=== PATIENT | male | born 1970 | race Caucasian/White ===

== ENCOUNTER 2021-11-28 09:03 | Emergency (ER) | payer OTHER, SELFPAY ==
[2021-11-28 09:15] VITALS: BP 121/79; PULSE 64; RESP 18; TEMP 36.1; O2SAT 96; BMI 35.9
--- NOTE | 2021-11-28 09:24 | CRLHL7_ITS ---
For Patients: As a result of the Century Cures Act, medical imaging exams and procedure reports are released immediately into your electronic medical record. You may view this report before your referring provider. If you have questions, please contact your health care provider. INDICATION: Chest pain TECHNIQUE: Chest 1 view COMPARISON: None FINDINGS: Cardiovascular and mediastinum: Cardiac silhouette is upper limits of normal. Lungs and pleural spaces: Mild areas of atelectasis noted. No sign of infiltrate or mass. No sign of pleural effusion. No pneumothorax. Bones and soft tissues: No significant findings. IMPRESSION: No cardiac decompensation. Dictated by Fredy Nelson MD @ 11/28/2021 10:33:04 AM (Electronically Signed)
--- NOTE | 2021-11-28 09:49 | ED.GENADULT ---
HPI - General Adult General Time Seen by Provider: 09:49 Date Seen: 11/28/21 Chief complaint: Chest Pain Stated complaint: Shortness of breath, left chest discomfor Time Seen by Provider: 11/28/21 09:23 Source: patient Mode of arrival: ambulatory Limitations: no limitations History of Present Illness HPI narrative: Patient is a 51 year white male had a myocardial infarction in February of last year had a single-vessel stent at [facility]. He has done well since then, he is currently working, yesterday and today he felt somewhat malaise, had a little bit of chest heaviness. [place] a little bit short of breath. Has not had COVID symptoms, has not really had a cough, no lower extremity edema or swelling. He continues on his Plavix and aspirin. His EKG by my read on presentation shows no acute ST T wave changes limited R-wave progression anteriorly he has got Q-waves inferiorly. No ST elevation or marked depression no significant T-wave changes. He denies leg swelling, skin changes, neurologic complaints. Related Data Home Medications Medication Instructions Recorded Confirmed aspirin 81 mg chewable tablet 11/28/21 (Bettina Chewable Low Dose Aspirin) atorvastatin 80 mg tablet mg 11/28/21 clopidogrel 75 mg tablet mg 11/28/21 diltiazem HCl 240 mg mg PO 11/28/21 capsule,extended release 24 hr fluticasone propionate 50 INTRANASAL 11/28/21 mcg/actuation nasal spray,suspension lisinopril 5 mg tablet mg 11/28/21 metoprolol succinate 100 mg mg PO 11/28/21 tablet,extended release 24 hr metoprolol succinate 25 mg mg PO 11/28/21 tablet,extended release 24 hr nitroglycerin 0.4 mg sublingual mg 11/28/21 tablet Allergies Allergy/AdvReac Type Severity Reaction Status Date / Time No Known Drug Allergies Allergy Verified 11/28/21 09:20 Review of Systems Status of ROS: Reports: 10 or more systems reviewed and unremarkable except as noted in History and below PFS PFS Social History Smoking Status: Former smoker What tobacco products do you use: cigarettes Years smoked: 20 Do you use any of these nicotine containing products: None Second hand tobacco smoke exposure: Yes How often do you have a drink containing alcohol: monthly or less How many standard drinks containing alcohol do you have on a typical day: 1 or 2 How often do you have six or more drinks on one occasion: Never AUDIT-C Alcohol total score: 1 Non-prescribed substance use: denies use service: No Exam Narrative: Exam Narrative: Objective: The patient appears in no apparent distress, noncyanotic, normal respiratory rate HEENT is unremarkable no facial asymmetry, mouth clear Neck supple Chest is clear no rales or wheezing Heart rhythm regular without murmur Abdomen benign soft nontender extra Extremities without edema, neurologic nonfocal Skin warm and dry Const: Vital Signs, click to edit/add: Vital Signs - 24 hr 11/28/21 09:15 Temperature 96.9 F L Pulse Rate [Right Pulse Oximeter] 64 Respiratory Rate 18 Blood Pressure [Ri ght Upper Arm] 121/79 Pulse Oximetry 96 Course Course Hospital Course: Because of the patient's history of coronary disease will get a 90 minute cardiac rule-out protocol, will get EKG which by my read looks like no acute change, chest x-ray, laboratory studies, aspirin, IV fluid., COVID test. Vital Signs Vital signs: Initial Vital Signs Temperature 96.9 F L 11/28/21 09:15 Temperature Source Temporal Artery Scan 11/28/21 09:15 Pulse Rate 64 11/28/21 09:15 Pulse Rhythm 11/28/21 09:15 Respiratory Rate 18 11/28/21 09:15 Blood Pressure 121/79 11/28/21 09:15 Blood Pressure Mean 93 11/28/21 09:15 Pulse Oximetry 96 11/28/21 09:15 Oxygen Delivery Method 11/28/21 09:15 Vital Signs Temperature 96.9 F L 11/28/21 09:15 Pulse Rate 64 11/28/21 09:15 Respiratory Rate 18 11/28/21 09:15 Blood Pressure 121/79 11/28/21 09:15 Pulse Oximetry 96 11/28/21 09:15 Temperature 96.9 F L 11/28/21 09:15 Pulse Rate 64 11/28/21 09:15 Respiratory Rate 18 11/28/21 09:15 Blood Pressure 121/79 11/28/21 09:15 Pulse Oximetry 96 11/28/21 09:15 Medical Decision Making MDM Narrative Medical decision making narrative: Patient has history of coronary disease and has had some malaise, fatigue, some chest tightness but not really pain. His EKG looks fairly reassuring, 90 minute cardiac rule-out protocol, likely conversation with the plant breeder scientist at [facility] after completion of his laboratory studies. Addendum: The patient's troponin is negative x2, he has no symptoms. His chest x-ray is unremarkable the [place] by my view. The patient will have a follow-up EKG if that looks reassuring he be discharged home, light activity, continue home medications, recheck with primary care in 2 days fasting to get a follow-up blood sugars is blood sugar was elevated to 20 and he is at this point been borderline diabetic The patient can follow up with his plant breeder scientist as per his primary care doctor would also write him off for work for the next 3 days. Lab Data Labs: Lab Results 11/28/21 11/28/21 11/28/21 Range/Units 09:30 09:30 09:30 WBC 7.91 (4.50-11.00) K/uL RBC 4.93 (4.30-5.90) m/uL Hgb 15.4 (13.5-17.5) gm/dL Hct 44.4 (37.0-53.0) % MCV 90 (80-100) fL MCH 31 (26-34) pg MCHC 35 (32-36) gm/dL RDW Coeff of Eloise 12.1 (11.5-15.5) % Plt Count 189 (140-440) K/uL Neut % (Auto) 69.8 (42.0-72.0) % Lymph % (Auto) 19.6 L (20-44) % [facility] % (Auto) 8.6 (0.0-11.0) % Eos % (Auto) 0.9 (0.0-7.0) % Baso % (Auto) 0.5 (0.0-3.0) % Neut # (Auto) 5.52 (1.7-7.0) K/uL Lymph # (Auto) 1.60 (0.90-2.90) K/uL [facility] # (Auto) 0.70 (0.00-0.90) K/UL Eos # (Auto) 0.07 (0.00-0.50) K/uL Baso # (Auto) 0.04 (0.00-0.30) K/uL Abs Immat Gran (auto) 0.05 (0.00-0.30) K/uL INR 1.00 (0.91-1.10) APTT 29 (23-33) Seconds D-Dimer Quant (PE/DVT) < 0.27 (0.00-0.50) ug/ml Sodium 135 (135-149) mmol/L Potassium 3.8 (3.6-5.1) mmol/L Chloride 104 (96-114) mmol/L Carbon Dioxide 23 (20-32) mmol/L BUN 11 (5-24) mg/dL Creatinine 0.8 (0.5-1.5) mg/dL Estimated Creat Clear 129.86 Glucose 220 H (60-115) mg/dL Calcium 8.8 (8.4-10.6) mg/dL Total Bilirubin 0.7 (0.1-1.5) mg/dL Direct Bilirubin 0.4 (0.0-0.5) mg/dL AST 24 (12-35) U/L ALT 20 (4-50) U/L Alkaline Phosphatase 86 (40-150) U/L C-Reactive Protein < 0.5 L (0.5-1.0) mg/dL Total Protein 6.9 (6.0-8.3) g/dL Albumin 4.3 (3.3-5.0) g/dL SARS-CoV-2 (PCR) (Negative) POC Troponin I (0.01-0.04) ng/ml 11/28/21 11/28/21 11/28/21 Range/Units 09:30 10:00 11:50 WBC (4.50-11.00) K/uL RBC (4.30-5.90) m/uL Hgb (13.5-17.5) gm/dL Hct (37.0-53.0) % MCV (80-100) fL MCH (26-34) pg MCHC (32-36) gm/dL RDW Coeff of Eloise (11.5-15.5) % Plt Count (140-440) K/uL Neut % (Auto) (42.0-72.0) % Lymph % (Auto) (20-44) % [facility] % (Auto) (0.0-11.0) % Eos % (Auto) (0.0-7.0) % Baso % (Auto) (0.0-3.0) % Neut # (Auto) (1.7-7.0) K/uL Lymph # (Auto) (0.90-2.90) K/uL [facility] # (Auto) (0.00-0.90) K/UL Eos # (Auto) (0.00-0.50) K/uL Baso # (Auto) (0.00-0.30) K/uL Abs Immat Gran (auto) (0.00-0.30) K/uL INR (0.91-1.10) APTT (23-33) Seconds D-Dimer Quant (PE/DVT) (0.00-0.50) ug/ml Sodium (135-149) mmol/L Potassium (3.6-5.1) mmol/L Chloride (96-114) mmol/L Carbon Dioxide (20-32) mmol/L BUN (5-24) mg/dL Creatinine (0.5-1.5) mg/dL Estimated Creat Clear Glucose (60-115) mg/dL Calcium (8.4-10.6) mg/dL Total Bilirubin (0.1-1.5) mg/dL Direct Bilirubin (0.0-0.5) mg/dL AST (12-35) U/L ALT (4-50) U/L Alkaline Phosphatase (40-150) U/L C-Reactive Protein (0.5-1.0) mg/dL Total Protein (6.0-8.3) g/dL Albumin (3.3-5.0) g/dL SARS-CoV-2 (PCR) Negative SARS-CoV-2 (Negative) POC Troponin I 0.01 0.00 L (0.01-0.04) ng/ml Discharge Plan Discharge Clinical Impression: Malaise, Chest pain Patient Disposition: Home w/ Parent or Adult Condition: Improved Instructions: Chest Pain (ED) Additional Instructions: Patient reports a good amount of stress at work, recommend off work for 3 days, recheck with primary care in 2 days. Of note is his blood sugar is elevated at 220 and this needs to be recheck, would recommend he come in fasting for his appointment in 2 days with primary care. Continue his home medications. His troponins are negative x2. Light activity. And then recheck with primary care in 2 days as mention return to the ED sooner problems concerns difficulty. Activity Level: Light activity Discharge Diet: Regular Prescriptions: No Action atorvastatin 80 mg tablet 0RF clopidogrel 75 mg tablet 0RF Label Comments: TAKE 1 TABLET BY MOUTH EVERY DAY aspirin [Bettina Chewable Aspirin] 81 mg tablet,chewable 0RF fluticasone propionate 50 mcg/actuation spray,suspension INTRANASAL 0RF Label Comments: [place] 1 spray nasl twice a day as directed diltiazem HCl 240 mg capsule,extended release 24hr PO 0RF metoprolol succinate 100 mg tablet extended release 24 hr PO 0RF nitroglycerin 0.4 mg tablet, sublingual 0RF Label Comments: PLACE 1 TABLET UNDER THE TONGUE EVERY 5 MINS NEEDED FOR CHEST PAIN lisinopril 5 mg tablet 0RF metoprolol succinate 25 mg tablet extended release 24 hr PO 0RF Stand Alone Forms: MyHealth Info Instructions
[2021-11-28 09:53] LABS: Basophils Absolute Auto 0.04 K/uL (0.00-0.30); Basophils Percent Auto 0.5 % (0.0-3.0); Eosinophils Absolute Auto 0.07 K/uL (0.00-0.50); Eosinophils Percent Auto 0.9 % (0.0-7.0); Hematocrit 44.4 % (37.0-53.0); Hemoglobin* 15.4 gm/dL (13.5-17.5); Immature Granulocytes Abs Auto 0.05 K/uL (0.00-0.30); Lymphocytes Percent Auto 19.6 % (20-44); Mean Corpuscular HGB Conc 35 gm/dL (32-36); Mean Corpuscular Hemoglobin 31 pg (26-34); Mean Corpuscular Volume 90 fL (80-100); Monocytes Percent Auto 8.6 % (0.0-11.0); Neutrophils Absolute Auto 5.52 K/uL (1.7-7.0); Neutrophils Percent Auto 69.8 % (42.0-72.0); Platelet Count* 189 K/uL (140-440); RDW Coefficient of Variation % 12.1 % (11.5-15.5); Red Blood Count 4.93 m/uL (4.30-5.90); White Blood Count* 7.91 K/uL (4.50-11.00)
[2021-11-28 09:58] LABS: Slide Review Reflex No
[2021-11-28] MEDS: 0.9 % SODIUM CHLORIDE 500 ML 500 ML IV (10:02)
[2021-11-28] MEDS: ASPIRIN 81 MG TAB.CHEW 324 MG PO (10:06)
[2021-11-28 10:09] LABS: Albumin* 4.3 g/dL (3.3-5.0); Chloride* 104 mmol/L (96-114)
[2021-11-28 10:10] LABS: Potassium* 3.8 mmol/L (3.6-5.1); Sodium* 135 mmol/L (135-149)
[2021-11-28 10:12] LABS: Aspartate Amino Transferase* 24 U/L (12-35); Bilirubin Direct* 0.4 mg/dL (0.0-0.5); Bilirubin Total* 0.7 mg/dL (0.1-1.5); Carbon Dioxide* 23 mmol/L (20-32); Creatinine* 0.8 mg/dL (0.5-1.5); Est. Creatinine Clearance* 129.86; Estimated Glomerular Filt Rate 108.49; Total Protein* 6.9 g/dL (6.0-8.3)
[2021-11-28 10:13] LABS: Alanine Aminotransferase* 20 U/L (4-50); Alkaline Phosphatase* 86 U/L (40-150); Blood Urea Nitrogen* 11 mg/dL (5-24); Calcium* 8.8 mg/dL (8.4-10.6); Glucose* 220 mg/dL (60-115)
[2021-11-28 10:19] LABS: C Reactive Protein* < 0.5 mg/dL (0.5-1.0)
[2021-11-28 10:26] LABS: Prothrombin Time 13.6 Seconds
[2021-11-28 10:27] LABS: Partial Thromboplastin Time* 29 Seconds (23-33)
[2021-11-28 10:31] LABS: D Dimer Quantitative* < 0.27 ug/ml (0.00-0.50)
[2021-11-28 10:31] LABS: Troponin, Point-of-Care* 0.01 ng/ml (0.01-0.04)
[2021-11-28 11:00] VITALS: BP 109/79; PULSE 57; RESP 26; O2SAT 95
[2021-11-28 11:15] LABS: SARS PCR* Negative SARS-CoV-2 (Negative)
[2021-11-28 11:30] VITALS: BP 112/70; PULSE 54; RESP 14; O2SAT 97
[2021-11-28 12:00] VITALS: BP 122/80; PULSE 58; O2SAT 96
[2021-11-28 12:30] VITALS: BP 124/87; PULSE 56; RESP 12; O2SAT 98
[2021-11-28 19:51] LABS: NT Pro B Type NatriureticPept* 265 PG/mL (0-125)
[2021-11-28 20:49] LABS: Troponin I* < 0.01 ng/mL (0.01-0.04)
== END 2021-11-28 12:49 | disposition home or self-care (01) ==
PROVIDERS: Emergency Provider Family Medicine
DX: R07.9 Chest pain, unspecified (principal); I25.2 Old myocardial infarction; Z95.5 Presence of coronary angioplasty implant and graft
CPT/HCPCS: 36415; 71045; 80048; 80076; 83880; 84484; 85025; 85379; 85610; 85730; 86140; 87635; 93005; 96360; 99284; 99285; A9270; J7120

== ENCOUNTER 2022-11-29 13:37 | Outpatient (CLI) | payer OTHER, SELFPAY | END 2022-11-29 13:38 | disposition home or self-care (01) | PROVIDERS: Visit Provider Internal Medicine Cardiovascular Disease | DX: R53.81 Other malaise (principal); R07.9 Chest pain, unspecified | CPT/HCPCS: 80048; 80061 ==

== ENCOUNTER 2022-12-23 14:51 | Outpatient (CLI) | payer OTHER, SELFPAY ==
[2022-12-24] MEDS: PERFLUTREN LIPID MICROSPHERES 2 ML VIAL IV (14:57)
== END 2022-12-23 14:52 | disposition home or self-care (01) ==
LOC: RAD 14:52
PROVIDERS: Visit Provider Internal Medicine Cardiovascular Disease
DX: I25.10 Atherosclerotic heart disease of native coronary artery without angina pectoris (principal); I34.0 Nonrheumatic mitral (valve) insufficiency; I35.1 Nonrheumatic aortic (valve) insufficiency
CPT/HCPCS: 93306; Q9957